=== PATIENT | male | born 1970 | race Caucasian/White ===

== ENCOUNTER 2018-07-13 20:14 | Inpatient (IN) | payer MEDICAID, OTHER ==
[2018-07-13 20:29] VITALS: BMI 25.8
[2018-07-13] MEDS ORDERED: Sodium Chloride 0.9% 1,000 ML IV ONE (20:35)
[2018-07-13 20:44] LABS: BASO % 0.5 % (0.0-2.0); EOS # 0.1 K/uL (0.0-0.7); EOS % 0.8 % (0.0-4.0); HEMOGLOBIN 16.7 g/dL (12.0-18.0); LYMPH # 2.4 K/uL (1.0-4.3); LYMPH % 33.6 % (20.0-40.0); MEAN CELL VOLUME 97.1 fL (80.0-94.0); MEAN CORPUSCULAR HEMOGLOBIN 33.4 pg (27.0-31.0); MEAN CORPUSCULAR HGB CONC 34.4 g/dL (33.0-37.0); MEAN PLATELET VOLUME 7.6 fL (7.2-11.7); MONO # 0.5 K/uL (0.0-0.8); NEUT # 4.1 K/uL (1.8-7.0); NEUT % 58.1 % (50.0-75.0); RED CELL DISTRIBUTION WIDTH 13.4 % (11.5-14.5); WHITE BLOOD COUNT 7.1 K/uL (4.8-10.8)
[2018-07-13 20:55] LABS: INR 1.1; PROTHROMBIN TIME 11.6 SECONDS (9.7-12.2)
[2018-07-13 20:57] LABS: ALB/GLOB RATIO 1.3 (1.0-2.1); ALBUMIN 5.6 g/dL (3.5-5.0); ALT/SGPT 388 U/L (21-72); AST/SGOT 406 U/L (17-59); BLOOD UREA NITROGEN 5 mg/dL (9-20); CALCIUM 9.9 mg/dl (8.6-10.4); GFR NON-AFRICAN AMERICAN > 60; HDL CHOLESTEROL 91 mg/dL (30-70)
[2018-07-13 21:08] LABS: LDL CHOLESTEROL 122 mg/dL (0-129)
--- NOTE | 2018-07-13 21:19 | C.PDOC ---
History Of Present Illness Patient BIBA for witnessed tonic clonic seizure that occurred [place] (seen by brother in law). Brother in law states he began shaking in the car, biting his tongue. He denies PMHx of seizure disorder, but admits that patient is a daily drinker of alcohol, and just returned from vacation in . He was there for approx 7 days and was drinking heavily the whole time, just returned yesterday from his trip. Time Seen by Provider: 07/13/18 20:19 Chief Complaint (Nursing): Altered Mental Status History Per: EMS, Family (brother in law) History/Exam Limitations: Clinical Condition Onset/Duration Of Symptoms: Other (H[place] CL[place]) Past Medical History Reviewed: Historical Data, Nursing Documentation, Vital Signs Vital Signs: Last Vital Signs Temp 98.7 F 07/13/18 20:25 Pulse 118 H 07/13/18 20:25 Resp 21 07/13/18 20:25 BP 193/99 H 07/13/18 20:25 Pulse Ox 97 07/13/18 20:25 - Medical History Other PMH: alcohol dependence Family History: States: No Known Family Hx - Social History Hx Alcohol Use: (UNKNOWN) Hx Substance Use: No (UNKNOWN) - Immunization History Hx Tetanus Toxoid Vaccination: No Hx Influenza Vaccination: No Hx Pneumococcal Vaccination: No Review Of Systems Review Of Systems: ROS cannot be obtained secondary to pt's inabilty to answer questions. Physical Exam - Physical Exam Appears: Other (confused, awake (?post ictal)) Skin: Normal Color, Warm, Dry Eye(s): bilateral: Other (occasional horizontal nystagmus ) Oral Mucosa: Moist Neck: Normal, Normal ROM, No Midline Cervical Tenderness, No Paracervical Tenderness, No Step Off Deformity, Supple Cardiovascular: Rhythm Regular (tachycardic ) Respiratory: Normal Breath Sounds, No Rales, No Rhonchi, No Wheezing Gastrointestinal/Abdominal: Normal Exam, Bowel Sounds, Soft, No Tenderness Extremity: Other (underwear wet with urine (+) loss of bladder control) Extremity: Bilateral: Atraumatic, Normal Color And Temperature, Normal ROM Neurological/Psych: Other (awake but confused, moving all 4 extremities spontaneously) ED Course And Treatment - Laboratory Results Result Diagrams: 07/13/18 20:28 07/13/18 20:34 O2 Sat by Pulse Oximetry: 97 (RA) Pulse Ox Interpretation: Normal - CT Scan/US CT Head Other Rad Studies (CT/US): Read By Radiologist, Radiology Report Reviewed CT/US Interpretation: FINDINGS: BRAIN. No acute intraparenchymal hemorrhage. No mass lesion. No CT evidence for acute territorial infarct. No midline shift or extra-axial collections. VENTRICLES: No hydrocephalus. ORBITS: The orbits are unremarkable. SINUSES AND MASTOIDS: The paranasal sinuses and mastoid air cells are clear. BONES: No fracture. SOFT TISSUES: Unremarkable. MISCELLANEOUS: No acute intracranial pathology. IMPRESSION: No acute intracranial pathology. Progress Note: Blood work, UA, UDS, EKG, CT head ordered and reviewed. Patient given IV NS bolus, IV ativan 1mg x 2. Suspect alcohol withdrawal seizure. 10:15PM- Patient agitated and speaking gibberish, not making sense. Discussed patient with [facility]. Skinner, concerned for delierium tremens. He will come eval patient. Disposition - Disposition Forms: [employer] (Slovak)
[2018-07-13 21:28] LABS: URINE BILIRUBIN NEGATIVE (NEGATIVE); URINE BLOOD 1+ (NEGATIVE); URINE CLARITY Clear (Clear); URINE COLOR Yellow (YELLOW); URINE GLUCOSE (UA) NORMAL (Normal); URINE LEUKOCYTE ESTERASE NEG Leu/uL (Negative); URINE PROTEIN NEGATIVE (NEGATIVE); URINE UROBILINOGEN NORMAL mg/dL (0.2-1.0)
[2018-07-13 21:36] LABS: BARBITURATES, UR NEGATIVE (NEGATIVE); BENZODIAZEPINES, UR NEGATIVE (NEGATIVE); OPIATES, UR NEGATIVE (NEGATIVE)
[2018-07-13 21:48] LABS: PHENCYCLIDINE, UR POSITIVE (NEGATIVE)
[2018-07-13] MEDS ORDERED: Multivitamin (MVI) 10 ML, Thiamine 100 MG, Folic Acid 1 MG in Sodium Chloride 0.9% 1,00... IV ONE (21:52)
--- NOTE | 2018-07-14 00:09 | CP.PCM.HP ---
<Tony Bolivar - Last Filed: 07/14/18 03:03> History of Present Illness - History of Present Illness History of Present Illness: H&P for Hospitalist Dr. Sommers History obtained from ER records as patient is incoherent with language and is under the influence of PCP and ETOH. 48 Y M brought in by ambulance for witnessed (by brother in law) tonic clonic seizures prior to arrival. Per brother in law, patient just returned from [facility] 1 days prior, where he was drinking heavily for 7 days. No further history obtainable since during H& P no family history was present. PMD: ? PMHx: ? Allergies: NKDA PSHx: ? Social: Heavy ETOH use FHx? Present on Admission - Present on Admission Any Indicators Present on Admission: No Review of Systems - Review of Systems Systems not reviewed;Unavailable: Altered Mental Status, Intoxicated Past Patient History - Past Social History Smoking Status: Unknown If Ever Smoked - PSYCHIATRIC Hx Substance Use: No (UNKNOWN) - SURGICAL HISTORY Hx Surgeries: (UNOBTAINABLE) - ANESTHESIA Hx Anesthesia: (UNOBTAINABLE) Meds Allergies/Adverse Reactions: Allergies Allergy/AdvReac Type Severity Reaction Status Date / Time No Known Allergies Allergy Verified 07/13/18 20:30 Physical Exam - Constitutional Appears: Agitated, Confused - Head Exam Head Exam: ATRAUMATIC, NORMAL INSPECTION, NORMOCEPHALIC - Eye Exam Eye Exam: Normal appearance - ENT Exam ENT Exam: Mucous Membranes Moist - Respiratory Exam Respiratory Exam: Clear to Auscultation Bilateral, NORMAL BREATHING PATTERN. absent: Rales, Rhonchi, Wheezes - Cardiovascular Exam Cardiovascular Exam: +S1, +S2. absent: Systolic Murmur - GI/Abdominal Exam GI & Abdominal Exam: Normal Bowel Sounds, Soft. absent: Distended - Extremities Exam Extremities exam: Positive for: normal inspection. Negative for: joint swelling, pedal edema - Neurological Exam Neurological exam: Alert, Altered - Skin Skin Exam: Dry, Intact, Normal Color, Warm Results - Vital Signs Recent Vital Signs: Last Vital Signs Temp 98.3 F 07/13/18 22:59 Pulse 119 H 07/13/18 22:59 Resp 17 07/13/18 22:59 BP 161/92 H 07/13/18 22:59 Pulse Ox 98 07/13/18 22:59 - Labs Result Diagrams: 07/13/18 20:28 07/13/18 20:34 Labs: Laboratory Results - last 24 hr 07/13/18 07/13/18 07/13/18 20:28 20:34 20:34 WBC 7.1 RBC 5.00 Hgb 16.7 Hct 48.6 MCV 97.1 H MCH 33.4 H MCHC 34.4 RDW 13.4 Plt Count 210 MPV 7.6 Neut % (Auto) 58.1 Lymph % (Auto) 33.6 [place] % (Auto) 7.0 Eos % (Auto) 0.8 Baso % (Auto) 0.5 Neut # (Auto) 4.1 Lymph # (Auto) 2.4 [place] # (Auto) 0.5 Eos # (Auto) 0.1 Baso # (Auto) 0.0 PT INR APTT Sodium 144 Potassium 4.7 Chloride 99 Carbon Dioxide 28 Anion Gap 22 H BUN 5 L Creatinine 0.6 L Est GFR ( Amer) > 60 Est GFR (Non-Af Amer) > 60 Random Glucose 110 Hemoglobin A1c 5.4 Calcium 9.9 Total Bilirubin 1.0 AST 406 H ALT 388 H D Alkaline Phosphatase 129 H Troponin I < 0.0120 Total Protein 9.8 H Albumin 5.6 H Globulin 4.3 H Albumin/Globulin Ratio 1.3 Triglycerides 302 H D Cholesterol 237 H LDL Cholesterol Direct 122 HDL Cholesterol 91 H Urine Color Urine Clarity Urine pH Ur Specific [place] Urine Protein Urine Glucose (UA) Urine Ketones Urine Blood Urine Nitrate Urine Bilirubin Urine Urobilinogen Ur Leukocyte Esterase Urine WBC (Auto) Urine RBC (Auto) Urine Opiates Screen Urine Methadone Screen Ur Barbiturates Screen Ur Phencyclidine Scrn Ur Amphetamines Screen U Benzodiazepines Scrn U Oth Cocaine Metabols U Cannabinoids Screen Alcohol, Quantitative 237 H Blood Type Antibody Screen 07/13/18 07/13/18 07/13/18 20:34 20:47 21:10 WBC RBC Hgb Hct MCV MCH MCHC RDW Plt Count MPV Neut % (Auto) Lymph % (Auto) [place] % (Auto) Eos % (Auto) Baso % (Auto) Neut # (Auto) Lymph # (Auto) [place] # (Auto) Eos # (Auto) Baso # (Auto) PT 11.6 INR 1.1 APTT 33 Sodium Potassium Chloride Carbon Dioxide Anion Gap BUN Creatinine Est GFR ( Amer) Est GFR (Non-Af Amer) Random Glucose Hemoglobin A1c Calcium Total Bilirubin AST ALT Alkaline Phosphatase Troponin I Total Protein Albumin Globulin Albumin/Globulin Ratio Triglycerides Cholesterol LDL Cholesterol Direct HDL Cholesterol Urine Color Yellow Urine Clarity Clear Urine pH 6.0 Ur Specific [place] 1.005 Urine Protein Negative Urine Glucose (UA) Normal Urine Ketones Negative Urine Blood 1+ H Urine Nitrate Negative Urine Bilirubin Negative Urine Urobilinogen Normal Ur Leukocyte Esterase Neg Urine WBC (Auto) < 1 Urine RBC (Auto) 1 Urine Opiates Screen Urine Methadone Screen Ur Barbiturates Screen Ur Phencyclidine Scrn Ur Amphetamines Screen U Benzodiazepines Scrn U Oth Cocaine Metabols U Cannabinoids Screen Alcohol, Quantitative Blood Type O POSITIVE Antibody Screen Negative 07/13/18 21:10 WBC RBC Hgb Hct MCV MCH MCHC RDW Plt Count MPV Neut % (Auto) Lymph % (Auto) [place] % (Auto) Eos % (Auto) Baso % (Auto) Neut # (Auto) Lymph # (Auto) [place] # (Auto) Eos # (Auto) Baso # (Auto) PT INR APTT Sodium Potassium Chloride Carbon Dioxide Anion Gap BUN Creatinine Est GFR ( Amer) Est GFR (Non-Af Amer) Random Glucose Hemoglobin A1c Calcium Total Bilirubin AST ALT Alkaline Phosphatase Troponin I Total Protein Albumin Globulin Albumin/Globulin Ratio Triglycerides Cholesterol LDL Cholesterol Direct HDL Cholesterol Urine Color Urine Clarity Urine pH Ur Specific [place] Urine Protein Urine Glucose (UA) Urine Ketones Urine Blood Urine Nitrate Urine Bilirubin Urine Urobilinogen Ur Leukocyte Esterase Urine WBC (Auto) Urine RBC (Auto) Urine Opiates Screen Negative Urine Methadone Screen Negative Ur Barbiturates Screen Negative Ur Phencyclidine Scrn Positive H Ur Amphetamines Screen Negative U Benzodiazepines Scrn Negative U Oth Cocaine Metabols Negative U Cannabinoids Screen Negative Alcohol, Quantitative Blood Type Antibody Screen Assessment & Plan - Assessment and Plan (Free Text) Assessment: 48 Y M brought in by ambulance for witnessed (by brother in law) tonic clonic seizures prior to arrival. Per brother in law, patient just returned from [facility] 1 days prior, where he was drinking heavily for 7 days. No further history obtainable since during H& P no family history was present. Agitation due to PCP - head CT: no acute intracranial pathology - sedate till sober - precedex 0.2 mcg/kg/ hr 1000ml Alcohol withdrawal - Watch for worsening of alcohol withdrawal - Aspiration precaution - Multivitamin - Thiamine 100 mg - Folic Acid 1mg - NS 125 mls/hr Seizure due to above combination - see above plan - hemoconcentration due to seizure - one to one Transaminitis - viral hepatitins panel - F/u ultrasound Prophylaxis - DVT: heparin 5000 units Q12H - Gradually reduce restrains as sedation increased <William Sommers - Last Filed: 07/14/18 06:23> Results - Vital Signs Recent Vital Signs: Last Vital Signs Temp 98 F 07/13/18 23:45 Pulse 114 H 07/13/18 23:45 Resp 17 07/13/18 23:45 BP 159/95 H 07/13/18 23:45 Pulse Ox 97 07/13/18 23:45 - Labs Result Diagrams: 07/14/18 05:56 07/13/18 20:34 Labs: Laboratory Results - last 24 hr 07/13/18 07/13/18 07/13/18 20:28 20:34 20:34 WBC 7.1 RBC 5.00 Hgb 16.7 Hct 48.6 MCV 97.1 H MCH 33.4 H MCHC 34.4 RDW 13.4 Plt Count 210 MPV 7.6 Neut % (Auto) 58.1 Lymph % (Auto) 33.6 [place] % (Auto) 7.0 Eos % (Auto) 0.8 Baso % (Auto) 0.5 Neut # (Auto) 4.1 Lymph # (Auto) 2.4 [place] # (Auto) 0.5 Eos # (Auto) 0.1 Baso # (Auto) 0.0 PT INR APTT Sodium 144 Potassium 4.7 Chloride 99 Carbon Dioxide 28 Anion Gap 22 H BUN 5 L Creatinine 0.6 L Est GFR ( Amer) > 60 Est GFR (Non-Af Amer) > 60 Random Glucose 110 Hemoglobin A1c 5.4 Calcium 9.9 Total Bilirubin 1.0 AST 406 H ALT 388 H D Alkaline Phosphatase 129 H Troponin I < 0.0120 Total Protein 9.8 H Albumin 5.6 H Globulin 4.3 H Albumin/Globulin Ratio 1.3 Triglycerides 302 H D Cholesterol 237 H LDL Cholesterol Direct 122 HDL Cholesterol 91 H Urine Color Urine Clarity Urine pH Ur Specific [place] Urine Protein Urine Glucose (UA) Urine Ketones Urine Blood Urine Nitrate Urine Bilirubin Urine Urobilinogen Ur Leukocyte Esterase Urine WBC (Auto) Urine RBC (Auto) Urine Opiates Screen Urine Methadone Screen Ur Barbiturates Screen Ur Phencyclidine Scrn Ur Amphetamines Screen U Benzodiazepines Scrn U Oth Cocaine Metabols U Cannabinoids Screen Alcohol, Quantitative 237 H Blood Type Antibody Screen 07/13/18 07/13/18 07/13/18 20:34 20:47 21:10 WBC RBC Hgb Hct MCV MCH MCHC RDW Plt Count MPV Neut % (Auto) Lymph % (Auto) [place] % (Auto) Eos % (Auto) Baso % (Auto) Neut # (Auto) Lymph # (Auto) [place] # (Auto) Eos # (Auto) Baso # (Auto) PT 11.6 INR 1.1 APTT 33 Sodium Potassium Chloride Carbon Dioxide Anion Gap BUN Creatinine Est GFR ( Amer) Est GFR (Non-Af Amer) Random Glucose Hemoglobin A1c Calcium Total Bilirubin AST ALT Alkaline Phosphatase Troponin I Total Protein Albumin Globulin Albumin/Globulin Ratio Triglycerides Cholesterol LDL Cholesterol Direct HDL Cholesterol Urine Color Yellow Urine Clarity Clear Urine pH 6.0 Ur Specific [place] 1.005 Urine Protein Negative Urine Glucose (UA) Normal Urine Ketones Negative Urine Blood 1+ H Urine Nitrate Negative Urine Bilirubin Negative Urine Urobilinogen Normal Ur Leukocyte Esterase Neg Urine WBC (Auto) < 1 Urine RBC (Auto) 1 Urine Opiates Screen Urine Methadone Screen Ur Barbiturates Screen Ur Phencyclidine Scrn Ur Amphetamines Screen U Benzodiazepines Scrn U Oth Cocaine Metabols U Cannabinoids Screen Alcohol, Quantitative Blood Type O POSITIVE Antibody Screen Negative 07/13/18 07/14/18 21:10 05:56 WBC 6.7 RBC 4.42 Hgb 14.9 Hct 42.9 MCV 96.9 H MCH 33.8 H MCHC 34.8 RDW 13.6 Plt Count 178 MPV 7.8 Neut % (Auto) 60.5 Lymph % (Auto) 29.4 [place] % (Auto) 9.0 Eos % (Auto) 0.7 Baso % (Auto) 0.4 Neut # (Auto) 4.0 Lymph # (Auto) 2.0 Josephine # (Auto) 0.6 Eos # (Auto) 0.0 Baso # (Auto) 0.0 PT INR APTT Sodium Potassium Chloride Carbon Dioxide Anion Gap BUN Creatinine Est GFR ( Amer) Est GFR (Non-Af Amer) Random Glucose Hemoglobin A1c Calcium Total Bilirubin AST ALT Alkaline Phosphatase Troponin I Total Protein Albumin Globulin Albumin/Globulin Ratio Triglycerides Cholesterol LDL Cholesterol Direct HDL Cholesterol Urine Color Urine Clarity Urine pH Ur Specific [place] Urine Protein Urine Glucose (UA) Urine Ketones Urine Blood Urine Nitrate Urine Bilirubin Urine Urobilinogen Ur Leukocyte Esterase Urine WBC (Auto) Urine RBC (Auto) Urine Opiates Screen Negative Urine Methadone Screen Negative Ur Barbiturates Screen Negative Ur Phencyclidine Scrn Positive H Ur Amphetamines Screen Negative U Benzodiazepines Scrn Negative U Oth Cocaine Metabols Negative U Cannabinoids Screen Negative Alcohol, Quantitative Blood Type Antibody Screen Assessment & Plan - Date & Time Date: 07/14/18 (I have seen and examined the patient. I agree with the findings and plan of care as documented by Dr. Bolivar. Patient with abuse of PCP and alcoh ol. Agitated. Seizurel. Transaminitis. Admit to ICU for further management. CIWA protocol with Ativan. Monitor for acute changes.) Time: 06:22 Attending/Attestation - Attestation I have personally seen and examined this patient.: Yes I have fully participated in the care of the patient.: Yes I have reviewed all pertinent clinical information: Yes
--- NOTE | 2018-07-14 00:30 | CP.PCM.CON ---
History of Present Illness - History of Present Illness History of Present Illness: 48 M with h/o alcoholism, drug abuse, was with his relative in the car and started to shake, EMT brought him here, initially he was lethargic and appeared post ictal but later he started to hallucinate, but still responding and answeri ng unreasonable answers, he was given 4 point restraints, he was not in distress. Labs showed hemoconcentration and transaminitis. PMD, PSH, meds, Allergies Details not available Social h/o heavy alcoholism Patient able to understand and communicate in E[place]. Review of Systems - Review of Systems All systems: reviewed and no additional remarkable complaints except (HPI) Past Patient History - Past Social History Smoking Status: Unknown If Ever Smoked Alcohol: > 2 Drinks/Day Drugs: Other (Unknown, but + PCP) Domestic Violence: Negative - PSYCHIATRIC Hx Substance Use: No (UNKNOWN) - SURGICAL HISTORY Hx Surgeries: (UNOBTAINABLE) - ANESTHESIA Hx Anesthesia: (UNOBTAINABLE) Meds Allergies/Adverse Reactions: Allergies Allergy/AdvReac Type Severity Reaction Status Date / Time No Known Allergies Allergy Verified 07/13/18 20:30 - Medications Medications: Current Medications Heparin Sodium (Porcine) (Heparin) 5,000 units SC Q12 [facility] Multivitamins/Vitamin C 10 ml/Thiamine HCl 100 mg/ Folic Acid 1 mg/ Sodium Chloride 1,011.2 mls @ 125 mls/hr IV .Q8H6M ONE Stop: 07/14/18 05:57 Last Admin: 07/13/18 22:20 Dose: 125 mls/hr Dexmedetomidine HCl 200 mcg/ (Sodium Chloride) 50 mls @ 3.97 mls/hr IV TITR PRN; Protocol PRN Reason: Agitation Pantoprazole Sodium (Protonix Inj) 40 mg IVP DAILY SARINA Physical Exam - Additional Findings Additional findings: * HEENT MICHELLE * Neck supple * Chest Clear * CVS Regular, tachycardia, RBBB on EKG * PA soft, nt bs present * Ext no edema, 4 point restraint * PEDIATRIC ONCOLOGIST awake, not in distress, hallucinating, moving all extremities, able to communicate Results - Vital Signs Recent Vital Signs: Last Vital Signs Temp 98.3 F 07/13/18 22:59 Pulse 119 H 07/13/18 22:59 Resp 17 07/13/18 22:59 BP 161/92 H 07/13/18 22:59 Pulse Ox 98 07/13/18 22:59 - Labs Result Diagrams: 07/13/18 20:28 07/13/18 20:34 Labs: Laboratory Results - last 24 hr 07/13/18 07/13/18 07/13/18 20:28 20:34 20:34 WBC 7.1 RBC 5.00 Hgb 16.7 Hct 48.6 MCV 97.1 H MCH 33.4 H MCHC 34.4 RDW 13.4 Plt Count 210 MPV 7.6 Neut % (Auto) 58.1 Lymph % (Auto) 33.6 [place] % (Auto) 7.0 Eos % (Auto) 0.8 Baso % (Auto) 0.5 Neut # (Auto) 4.1 Lymph # (Auto) 2.4 [place] # (Auto) 0.5 Eos # (Auto) 0.1 Baso # (Auto) 0.0 PT INR APTT Sodium 144 Potassium 4.7 Chloride 99 Carbon Dioxide 28 Anion Gap 22 H BUN 5 L Creatinine 0.6 L Est GFR ( Amer) > 60 Est GFR (Non-Af Amer) > 60 Random Glucose 110 Hemoglobin A1c 5.4 Calcium 9.9 Total Bilirubin 1.0 AST 406 H ALT 388 H D Alkaline Phosphatase 129 H Troponin I < 0.0120 Total Protein 9.8 H Albumin 5.6 H Globulin 4.3 H Albumin/Globulin Ratio 1.3 Triglycerides 302 H D Cholesterol 237 H LDL Cholesterol Direct 122 HDL Cholesterol 91 H Urine Color Urine Clarity Urine pH Ur Specific [place] Urine Protein Urine Glucose (UA) Urine Ketones Urine Blood Urine Nitrate Urine Bilirubin Urine Urobilinogen Ur Leukocyte Esterase Urine WBC (Auto) Urine RBC (Auto) Urine Opiates Screen Urine Methadone Screen Ur Barbiturates Screen Ur Phencyclidine Scrn Ur Amphetamines Screen U Benzodiazepines Scrn U Oth Cocaine Metabols U Cannabinoids Screen Alcohol, Quantitative 237 H Blood Type Antibody Screen 07/13/18 07/13/18 07/13/18 20:34 20:47 21:10 WBC RBC Hgb Hct MCV MCH MCHC RDW Plt Count MPV Neut % (Auto) Lymph % (Auto) [place] % (Auto) Eos % (Auto) Baso % (Auto) Neut # (Auto) Lymph # (Auto) [place] # (Auto) Eos # (Auto) Baso # (Auto) PT 11.6 INR 1.1 APTT 33 Sodium Potassium Chloride Carbon Dioxide Anion Gap BUN Creatinine Est GFR ( Amer) Est GFR (Non-Af Amer) Random Glucose Hemoglobin A1c Calcium Total Bilirubin AST ALT Alkaline Phosphatase Troponin I Total Protein Albumin Globulin Albumin/Globulin Ratio Triglycerides Cholesterol LDL Cholesterol Direct HDL Cholesterol Urine Color Yellow Urine Clarity Clear Urine pH 6.0 Ur Specific [place] 1.005 Urine Protein Negative Urine Glucose (UA) Normal Urine Ketones Negative Urine Blood 1+ H Urine Nitrate Negative Urine Bilirubin Negative Urine Urobilinogen Normal Ur Leukocyte Esterase Neg Urine WBC (Auto) < 1 Urine RBC (Auto) 1 Urine Opiates Screen Urine Methadone Screen Ur Barbiturates Screen Ur Phencyclidine Scrn Ur Amphetamines Screen U Benzodiazepines Scrn U Oth Cocaine Metabols U Cannabinoids Screen Alcohol, Quantitative Blood Type O POSITIVE Antibody Screen Negative 07/13/18 21:10 WBC RBC Hgb Hct MCV MCH MCHC RDW Plt Count MPV Neut % (Auto) Lymph % (Auto) [place] % (Auto) Eos % (Auto) Baso % (Auto) Neut # (Auto) Lymph # (Auto) [place] # (Auto) Eos # (Auto) Baso # (Auto) PT INR APTT Sodium Potassium Chloride Carbon Dioxide Anion Gap BUN Creatinine Est GFR ( Amer) Est GFR (Non-Af Amer) Random Glucose Hemoglobin A1c Calcium Total Bilirubin AST ALT Alkaline Phosphatase Troponin I Total Protein Albumin Globulin Albumin/Globulin Ratio Triglycerides Cholesterol LDL Cholesterol Direct HDL Cholesterol Urine Color Urine Clarity Urine pH Ur Specific [place] Urine Protein Urine Glucose (UA) Urine Ketones Urine Blood Urine Nitrate Urine Bilirubin Urine Urobilinogen Ur Leukocyte Esterase Urine WBC (Auto) Urine RBC (Auto) Urine Opiates Screen Negative Urine Methadone Screen Negative Ur Barbiturates Screen Negative Ur Phencyclidine Scrn Positive H Ur Amphetamines Screen Negative U Benzodiazepines Scrn Negative U Oth Cocaine Metabols Negative U Cannabinoids Screen Negative Alcohol, Quantitative Blood Type Antibody Screen Assessment & Plan - Assessment and Plan (Free Text) Assessment: * Agitation due to PCP * Alcohol withdrawal * Seizure due to above combination * hemoconcentration due to seizure * Transaminitis. Plan: * Sedate till sober * Watch for worsening of alcohol withdrawal * Aspiration precaution * GI/DVT prophylaxis * Bananna bag * Viral hepatitis panel * USG * Patient currently not in state that he could be counselled * Gradually reduce restrains as sedation increased. * See orders for detail.
[2018-07-14] MEDS: Dexmedetomidine Hydrochloride 200 MCG in Sodium Chloride 0.9% 48 ML IV PRN ×3 (01:00→09:39)
[2018-07-14 06:03] LABS: BASO % 0.4 % (0.0-2.0); EOS % 0.7 % (0.0-4.0); HEMOGLOBIN 14.9 g/dL (12.0-18.0); LYMPH % 29.4 % (20.0-40.0); MEAN CELL VOLUME 96.9 fL (80.0-94.0); MEAN CORPUSCULAR HEMOGLOBIN 33.8 pg (27.0-31.0); MEAN CORPUSCULAR HGB CONC 34.8 g/dL (33.0-37.0); MEAN PLATELET VOLUME 7.8 fL (7.2-11.7); MONO # 0.6 K/uL (0.0-0.8); NEUT % 60.5 % (50.0-75.0); NRBC % 0.1 % (0.0-2.0); RBC 4.42 Mil/uL (4.40-5.90); RED CELL DISTRIBUTION WIDTH 13.6 % (11.5-14.5); WHITE BLOOD COUNT 6.7 K/uL (4.8-10.8)
[2018-07-14 06:37] LABS: ALB/GLOB RATIO 1.5 (1.0-2.1); ALT/SGPT 348 U/L (21-72); AST/SGOT 343 U/L (17-59); BLOOD UREA NITROGEN 7 mg/dL (9-20); CALCIUM 9.3 mg/dl (8.6-10.4); GFR NON-AFRICAN AMERICAN > 60
[2018-07-14 06:53] LABS: HEPATITIS B SURFACE AG Negative (NEGATIVE)
[2018-07-14 06:59] LABS: HEPATITIS A IGM NEGATIVE (NEGATIVE); HEPATITIS B CORE AB NEGATIVE (NEGATIVE)
[2018-07-14 07:11] LABS: HEPATITIS C ANTIBODY NEGATIVE (NEGATIVE)
--- NOTE | 2018-07-14 08:16 | CT ---
Date of service: 07/13/2018 PROCEDURE: CT HEAD WITHOUT CONTRAST. HISTORY: Code Stroke COMPARISON: None available. TECHNIQUE: Axial computed tomography images were obtained through the head/brain without intravenous contrast. Radiation dose: Total exam DLP = 1029.09 mGy-cm. This CT exam was performed using one or more of the following dose reduction techniques: Automated exposure control, adjustment of the mA and/or kV according to patient size, and/or use of iterative reconstruction technique. FINDINGS: HEMORRHAGE: No intracranial hemorrhage. BRAIN: No mass effect or edema. No atrophy or chronic microvascular ischemic changes. VENTRICLES: Unremarkable. No hydrocephalus. CALVARIUM: Unremarkable. PARANASAL SINUSES: Unremarkable as visualized. No significant inflammatory changes. MASTOID AIR CELLS: Unremarkable as visualized. No inflammatory changes. OTHER FINDINGS: None. IMPRESSION: No acute intracranial abnormality. If symptoms persist, consider correlation with MRI. These findings were preliminarily reported at 9:23 p.m. on 07/13/[address] Eddie Ordoñez from [employer].
[2018-07-14 09:03] VITALS: TEMP 96.5
--- NOTE | 2018-07-14 09:16 | RAD ---
Date of service: 07/13/2018 HISTORY: Code Stroke COMPARISON: No prior. FINDINGS: LUNGS: The lungs are well inflated and clear. PLEURA: No pleural effusions or pneumothorax. CARDIOVASCULAR: The heart is normal in size. No aortic atherosclerotic calcification present. OSSEOUS STRUCTURES: Within normal limits for the patient's age. VISUALIZED UPPER ABDOMEN: Normal. OTHER FINDINGS: None. IMPRESSION: No active pulmonary disease.
--- NOTE | 2018-07-14 09:19 | CP.PCM.PN ---
Subjective - Date & Time of Evaluation Date of Evaluation: 07/14/18 Time of Evaluation: 08:15 - Subjective Subjective: Patient was on 1 to 1 when I saw him. He was calm, responding to questions. He did not appear agitated or having withdrawal symptoms - however he is on Precedex GGT at this moment. 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 He does not remember the events from previous night/morning. Currently no alcohol withdrawal symptoms - however this may change. Objective - Vital Signs/Intake and Output Vital Signs (last 24 hours): Temp Pulse Resp BP Pulse Ox 96.5 F L 60 14 134/89 99 07/14/18 08:00 07/14/18 09:00 07/14/18 09:00 07/14/18 08:59 07/14/18 09:00 Intake and Output: 07/14/18 07/14/18 06:59 18:59 Intake Total 887.3 131.8 Output Total 400 0 Balance 487.3 131.8 - Medications Medications: Current Medications Heparin Sodium (Porcine) (Heparin) 5,000 units SC Q12 [facility] Dexmedetomidine HCl 200 mcg/ (Sodium Chloride) 50 mls @ 3.97 mls/hr IV TITR PRN; Protocol PRN Reason: Agitation Last Titration: 07/14/18 05:00 Dose: 0.3 mcg/kg/hr, 5.95 mls/hr Pantoprazole Sodium (Protonix Inj) 40 mg IVP DAILY [facility] - Labs Labs: 07/14/18 05:56 07/14/18 05:56 PT 11.6 SECONDS (9.7-12.2) 07/13/18 20:47 INR 1.1 07/13/18 20:47 APTT 33 SECONDS (21-34) 07/13/18 20:47 - Constitutional Appears: No Acute Distress, Chronically Ill - Head Exam Head Exam: NORMAL INSPECTION - Eye Exam Eye Exam: EOMI, Normal appearance - Respiratory Exam Respiratory Exam: Clear to Ausculation Bilateral, NORMAL BREATHING PATTERN - Cardiovascular Exam Cardiovascular Exam: REGULAR RHYTHM - GI/Abdominal Exam GI & Abdominal Exam: Soft, Normal Bowel Sounds - Neurological Exam Neurological Exam: Alert, Altered, Awake - Psychiatric Exam Psychiatric exam: Depressed, Flat Affect - Skin Skin Exam: Normal Color, Warm Assessment and Plan - Assessment and Plan (Free Text) Assessment: 48 Y M brought in by ambulance for witnessed (by brother in law) tonic clonic seizures prior to arrival. Per brother in law, patient just returned from [facility] 1 days prior, where he was drinking heavily for 7 days. No further history obtainable since during H& P no family history was present. Agitation due to PCP 07/14: Currently better, last night/morning had severe agitation. - head CT: no acute intracranial pathology - sedate till sober - precedex 0.2 mcg/kg/ hr 1000ml Alcohol withdrawal 07/14: This morning currently no symptoms. however on Precedex GGT, Give ativan as needed as the prcedex is weened off. - Watch for worsening of alcohol withdrawal - Thiamine 100 mg - Folic Acid 1mg - NS 125 mls/hr Seizure due to above combination - see above plan - hemoconcentration due to seizure - one to one Transaminitis 07/14: Both AST and ALT decreased to mid 300s - viral hepatitins panel - F/u ultrasound Prophylaxis - DVT: heparin 5000 units Q12H - Gradually reduce restrains as sedation increased
--- NOTE | 2018-07-14 09:28 | CP.CCUPN ---
CCU Subjective - Physician Review Events Since Last Encounter (Free Text): 07/14/18 09:27 Patient was agitated overnight, however currently is calm and without complaints. Critical Care Time Spent (in minutes): 35 CCU Objective - Vital Signs / Intake & Output Vital Signs (Last 4 hours): Vital Signs Temp Pulse Resp BP Pulse Ox 07/14/18 09:00 60 14 99 07/14/18 08:59 17 134/89 07/14/18 08:20 79 20 99 07/14/18 08:10 62 20 99 07/14/18 08:00 96.5 F L 62 13 98 07/14/18 07:59 57 L 14 122/80 98 07/14/18 07:50 60 14 98 07/14/18 07:40 59 L 14 98 07/14/18 07:30 60 14 97 07/14/18 07:20 61 16 96 07/14/18 07:16 65 16 07/14/18 07:15 122/81 07/14/18 07:02 70 19 07/14/18 07:00 64 17 07/14/18 06:50 69 15 07/14/18 06:40 83 19 07/14/18 06:30 65 15 07/14/18 06:20 65 17 07/14/18 06:16 70 17 128/85 07/14/18 06:10 78 13 07/14/18 06:00 71 12 07/14/18 05:50 71 10 L 07/14/18 05:40 73 19 07/14/18 05:30 72 20 Intake and Output (Last 8hrs): Intake & Output 07/13/18 07/14/18 07/14/18 22:59 06:59 14:59 Intake Total 887.3 131.8 Output Total 400 0 Balance 487.3 131.8 Weight 175 lb 199 lb 15.348 oz Intake: IV 60 Intake, IV Amount 827.3 131.8 Left Antecubital 0 Right Antecubital 750 125 Right Upper arm 77.3 6.8 Oral 0 Output: Urine 400 Urine, Voided 400 Emesis 0 0 Other: # Voids Urine, Voided 1 # Bowel Movements 0 0 - Medications Active Medications: Active Medications Generic Name Dose Route Start Last Admin Trade Name Freq PRN Reason Stop Dose Admin Heparin Sodium (Porcine) 5,000 units 07/14/18 10:00 Heparin SC Q12 SARINA Dexmedetomidine HCl 200 mcg/ 50 mls @ 3.97 mls/hr 07/14/18 00:10 07/14/18 05: 00 Sodium Chloride IV 0.3 mcg/kg/hr TITR PRN 5.95 mls/hr Agitation Titration Protocol 0.2 MCG/KG/HR Pantoprazole Sodium 40 mg 07/14/18 10:00 Protonix Inj IVP DAILY SARINA - Patient Studies Lab Studies: Lab Studies 07/14/18 07/14/18 07/14/18 Range/Units 05:56 05:56 05:56 WBC 6.7 (4.8-10.8) K/uL RBC 4.42 (4.40-5.90) Mil/uL Hgb 14.9 (12.0-18.0) g/dL Hct 42.9 (35.0-51.0) % MCV 96.9 H (80.0-94.0) fL MCH 33.8 H (27.0-31.0) pg MCHC 34.8 (33.0-37.0) g/dL RDW 13.6 (11.5-14.5) % Plt Count 178 (130-400) K/uL MPV 7.8 (7.2-11.7) fL Neut % (Auto) 60.5 (50.0-75.0) % Lymph % (Auto) 29.4 (20.0-40.0) % [place] % (Auto) 9.0 (0.0-10.0) % Eos % (Auto) 0.7 (0.0-4.0) % Baso % (Auto) 0.4 (0.0-2.0) % Neut # (Auto) 4.0 (1.8-7.0) K/uL Lymph # (Auto) 2.0 (1.0-4.3) K/uL [place] # (Auto) 0.6 (0.0-0.8) K/uL Eos # (Auto) 0.0 (0.0-0.7) K/uL Baso # (Auto) 0.0 (0.0-0.2) K/uL PT (9.7-12.2) SECONDS INR APTT (21-34) SECONDS Sodium 145 (132-148) mmol/L Potassium 4.2 (3.6-5.2) mmol/L Chloride 107 (98-107) mmol/L Carbon Dioxide 23 (22-30) mmol/L Anion Gap 19 (10-20) BUN 7 L (9-20) mg/dL Creatinine 0.6 L (0.8-1.5) mg/dL Est GFR ( Amer) > 60 Est GFR (Non-Af Amer) > 60 Random Glucose 107 (75-110) mg/dL Hemoglobin A1c (4.2-6.5) % Calcium 9.3 (8.6-10.4) mg/dl Phosphorus 4.1 (2.5-4.5) mg/dL Magnesium 1.9 (1.6-2.3) mg/dL Total Bilirubin 1.1 (0.2-1.3) mg/dL AST 343 H (17-59) U/L ALT 348 H (21-72) U/L Alkaline Phosphatase 94 (38-126) U/L Troponin I (0.00-0.120) ng/mL Total Protein 8.4 H (6.3-8.3) g/dL Albumin 5.0 (3.5-5.0) g/dL Globulin 3.4 (2.2-3.9) gm/dL Albumin/Globulin Ratio 1.5 (1.0-2.1) Triglycerides (0-149) mg/dL Cholesterol (0-199) mg/dL LDL Cholesterol Direct (0-129) mg/dL HDL Cholesterol (30-70) mg/dL Urine Color (YELLOW) Urine Clarity (Clear) Urine pH (5.0-8.0) Ur Specific [place] (1.003-1.030) Urine Protein (NEGATIVE) mg/dL Urine Glucose (UA) (Normal) mg/dL Urine Ketones (NEGATIVE) mg/dL Urine Blood (NEGATIVE) Urine Nitrate (NEGATIVE) Urine Bilirubin (NEGATIVE) Urine Urobilinogen (0.2-1.0) mg/dL Ur Leukocyte Esterase (Negative) Jose Daniel/uL Urine WBC (Auto) (0-5) /hpf Urine RBC (Auto) (0-3) /hpf Urine Opiates Screen (NEGATIVE) Urine Methadone Screen (NEGATIVE) Ur Barbiturates Screen (NEGATIVE) Ur Phencyclidine Scrn (NEGATIVE) Ur Amphetamines Screen (NEGATIVE) U Benzodiazepines Scrn (NEGATIVE) U Oth Cocaine Metabols (NEGATIVE) U Cannabinoids Screen (NEGATIVE) Alcohol, Quantitative (0-10) mg/dl Hepatitis A IgM Ab Negative (NEGATIVE) Hep Bs Antigen Negative (NEGATIVE) Hep B Core IgM Ab Negative (NEGATIVE) Hepatitis C Antibody Negative (NEGATIVE) Blood Type Antibody Screen 07/14/18 07/13/18 07/13/18 Range/Units 05:56 21:10 21:10 WBC (4.8-10.8) K/uL RBC (4.40-5.90) Mil/uL Hgb (12.0-18.0) g/dL Hct (35.0-51.0) % MCV (80.0-94.0) fL MCH (27.0-31.0) pg MCHC (33.0-37.0) g/dL RDW (11.5-14.5) % Plt Count (130-400) K/uL MPV (7.2-11.7) fL Neut % (Auto) (50.0-75.0) % Lymph % (Auto) (20.0-40.0) % [place] % (Auto) (0.0-10.0) % Eos % (Auto) (0.0-4.0) % Baso % (Auto) (0.0-2.0) % Neut # (Auto) (1.8-7.0) K/uL Lymph # (Auto) (1.0-4.3) K/uL [place] # (Auto) (0.0-0.8) K/uL Eos # (Auto) (0.0-0.7) K/uL Baso # (Auto) (0.0-0.2) K/uL PT (9.7-12.2) SECONDS INR APTT (21-34) SECONDS Sodium (132-148) mmol/L Potassium (3.6-5.2) mmol/L Chloride (98-107) mmol/L Carbon Dioxide (22-30) mmol/L Anion Gap (10-20) BUN (9-20) mg/dL Creatinine (0.8-1.5) mg/dL Est GFR ( Amer) Est GFR (Non-Af Amer) Random Glucose (75-110) mg/dL Hemoglobin A1c (4.2-6.5) % Calcium (8.6-10.4) mg/dl Phosphorus (2.5-4.5) mg/dL Magnesium (1.6-2.3) mg/dL Total Bilirubin (0.2-1.3) mg/dL AST (17-59) U/L ALT (21-72) U/L Alkaline Phosphatase (38-126) U/L Troponin I (0.00-0.120) ng/mL Total Protein (6.3-8.3) g/dL Albumin (3.5-5.0) g/dL Globulin (2.2-3.9) gm/dL Albumin/Globulin Ratio (1.0-2.1) Triglycerides (0-149) mg/dL Cholesterol (0-199) mg/dL LDL Cholesterol Direct (0-129) mg/dL HDL Cholesterol (30-70) mg/dL Urine Color Yellow (YELLOW) Urine Clarity Clear (Clear) Urine pH 6.0 (5.0-8.0) Ur Specific [place] 1.005 (1.003-1.030) Urine Protein Negative (NEGATIVE) mg/dL Urine Glucose (UA) Normal (Normal) mg/dL Urine Ketones Negative (NEGATIVE) mg/dL Urine Blood 1+ H (NEGATIVE) Urine Nitrate Negative (NEGATIVE) Urine Bilirubin Negative (NEGATIVE) Urine Urobilinogen Normal (0.2-1.0) mg/dL Ur Leukocyte Esterase Neg (Negative) Jose Daniel/uL Urine WBC (Auto) < 1 (0-5) /hpf Urine RBC (Auto) 1 (0-3) /hpf Urine Opiates Screen Negative (NEGATIVE) Urine Methadone Screen Negative (NEGATIVE) Ur Barbiturates Screen Negative (NEGATIVE) Ur Phencyclidine Scrn Positive H (NEGATIVE) Ur Amphetamines Screen Negative (NEGATIVE) U Benzodiazepines Scrn Negative (NEGATIVE) U Oth Cocaine Metabols Negative (NEGATIVE) U Cannabinoids Screen Negative (NEGATIVE) Alcohol, Quantitative < 10 (0-10) mg/dl Hepatitis A IgM Ab (NEGATIVE) Hep Bs Antigen (NEGATIVE) Hep B Core IgM Ab (NEGATIVE) Hepatitis C Antibody (NEGATIVE) Blood Type Antibody Screen 07/13/18 07/13/18 07/13/18 Range/Units 20:47 20:34 20:34 WBC (4.8-10.8) K/uL RBC (4.40-5.90) Mil/uL Hgb (12.0-18.0) g/dL Hct (35.0-51.0) % MCV (80.0-94.0) fL MCH (27.0-31.0) pg MCHC (33.0-37.0) g/dL RDW (11.5-14.5) % Plt Count (130-400) K/uL MPV (7.2-11.7) fL Neut % (Auto) (50.0-75.0) % Lymph % (Auto) (20.0-40.0) % [place] % (Auto) (0.0-10.0) % Eos % (Auto) (0.0-4.0) % Baso % (Auto) (0.0-2.0) % Neut # (Auto) (1.8-7.0) K/uL Lymph # (Auto) (1.0-4.3) K/uL [place] # (Auto) (0.0-0.8) K/uL Eos # (Auto) (0.0-0.7) K/uL Baso # (Auto) (0.0-0.2) K/uL PT 11.6 (9.7-12.2) SECONDS INR 1.1 APTT 33 (21-34) SECONDS Sodium (132-148) mmol/L Potassium (3.6-5.2) mmol/L Chloride (98-107) mmol/L Carbon Dioxide (22-30) mmol/L Anion Gap (10-20) BUN (9-20) mg/dL Creatinine (0.8-1.5) mg/dL Est GFR ( Amer) Est GFR (Non-Af Amer) Random Glucose (75-110) mg/dL Hemoglobin A1c 5.4 (4.2-6.5) % Calcium (8.6-10.4) mg/dl Phosphorus (2.5-4.5) mg/dL Magnesium (1.6-2.3) mg/dL Total Bilirubin (0.2-1.3) mg/dL AST (17-59) U/L ALT (21-72) U/L Alkaline Phosphatase (38-126) U/L Troponin I (0.00-0.120) ng/mL Total Protein (6.3-8.3) g/dL Albumin (3.5-5.0) g/dL Globulin (2.2-3.9) gm/dL Albumin/Globulin Ratio (1.0-2.1) Triglycerides (0-149) mg/dL Cholesterol (0-199) mg/dL LDL Cholesterol Direct (0-129) mg/dL HDL Cholesterol (30-70) mg/dL Urine Color (YELLOW) Urine Clarity (Clear) Urine pH (5.0-8.0) Ur Specific [place] (1.003-1.030) Urine Protein (NEGATIVE) mg/dL Urine Glucose (UA) (Normal) mg/dL Urine Ketones (NEGATIVE) mg/dL Urine Blood (NEGATIVE) Urine Nitrate (NEGATIVE) Urine Bilirubin (NEGATIVE) Urine Urobilinogen (0.2-1.0) mg/dL Ur Leukocyte Esterase (Negative) Jose Daniel/uL Urine WBC (Auto) (0-5) /hpf Urine RBC (Auto) (0-3) /hpf Urine Opiates Screen (NEGATIVE) Urine Methadone Screen (NEGATIVE) Ur Barbiturates Screen (NEGATIVE) Ur Phencyclidine Scrn (NEGATIVE) Ur Amphetamines Screen (NEGATIVE) U Benzodiazepines Scrn (NEGATIVE) U Oth Cocaine Metabols (NEGATIVE) U Cannabinoids Screen (NEGATIVE) Alcohol, Quantitative (0-10) mg/dl Hepatitis A IgM Ab (NEGATIVE) Hep Bs Antigen (NEGATIVE) Hep B Core IgM Ab (NEGATIVE) Hepatitis C Antibody (NEGATIVE) Blood Type O POSITIVE Antibody Screen Negative 07/13/18 07/13/18 Range/Units 20:34 20:28 WBC 7.1 (4.8-10.8) K/uL RBC 5.00 (4.40-5.90) Mil/uL Hgb 16.7 (12.0-18.0) g/dL Hct 48.6 (35.0-51.0) % MCV 97.1 H (80.0-94.0) fL MCH 33.4 H (27.0-31.0) pg MCHC 34.4 (33.0-37.0) g/dL RDW 13.4 (11.5-14.5) % Plt Count 210 (130-400) K/uL MPV 7.6 (7.2-11.7) fL Neut % (Auto) 58.1 (50.0-75.0) % Lymph % (Auto) 33.6 (20.0-40.0) % [place] % (Auto) 7.0 (0.0-10.0) % Eos % (Auto) 0.8 (0.0-4.0) % Baso % (Auto) 0.5 (0.0-2.0) % Neut # (Auto) 4.1 (1.8-7.0) K/uL Lymph # (Auto) 2.4 (1.0-4.3) K/uL [place] # (Auto) 0.5 (0.0-0.8) K/uL Eos # (Auto) 0.1 (0.0-0.7) K/uL Baso # (Auto) 0.0 (0.0-0.2) K/uL PT (9.7-12.2) SECONDS INR APTT (21-34) SECONDS Sodium 144 (132-148) mmol/L Potassium 4.7 (3.6-5.2) mmol/L Chloride 99 (98-107) mmol/L Carbon Dioxide 28 (22-30) mmol/L Anion Gap 22 H (10-20) BUN 5 L (9-20) mg/dL Creatinine 0.6 L (0.8-1.5) mg/dL Est GFR ( Amer) > 60 Est GFR (Non-Af Amer) > 60 Random Glucose 110 (75-110) mg/dL Hemoglobin A1c (4.2-6.5) % Calcium 9.9 (8.6-10.4) mg/dl Phosphorus (2.5-4.5) mg/dL Magnesium (1.6-2.3) mg/dL Total Bilirubin 1.0 (0.2-1.3) mg/dL AST 406 H (17-59) U/L ALT 388 H D (21-72) U/L Alkaline Phosphatase 129 H (38-126) U/L Troponin I < 0.0120 (0.00-0.120) ng/mL Total Protein 9.8 H (6.3-8.3) g/dL Albumin 5.6 H (3.5-5.0) g/dL Globulin 4.3 H (2.2-3.9) gm/dL Albumin/Globulin Ratio 1.3 (1.0-2.1) Triglycerides 302 H D (0-149) mg/dL Cholesterol 237 H (0-199) mg/dL LDL Cholesterol Direct 122 (0-129) mg/dL HDL Cholesterol 91 H (30-70) mg/dL Urine Color (YELLOW) Urine Clarity (Clear) Urine pH (5.0-8.0) Ur Specific [place] (1.003-1.030) Urine Protein (NEGATIVE) mg/dL Urine Glucose (UA) (Normal) mg/dL Urine Ketones (NEGATIVE) mg/dL Urine Blood (NEGATIVE) Urine Nitrate (NEGATIVE) Urine Bilirubin (NEGATIVE) Urine Urobilinogen (0.2-1.0) mg/dL Ur Leukocyte Esterase (Negative) Jose Daniel/uL Urine WBC (Auto) (0-5) /hpf Urine RBC (Auto) (0-3) /hpf Urine Opiates Screen (NEGATIVE) Urine Methadone Screen (NEGATIVE) Ur Barbiturates Screen (NEGATIVE) Ur Phencyclidine Scrn (NEGATIVE) Ur Amphetamines Screen (NEGATIVE) U Benzodiazepines Scrn (NEGATIVE) U Oth Cocaine Metabols (NEGATIVE) U Cannabinoids Screen (NEGATIVE) Alcohol, Quantitative 237 H (0-10) mg/dl Hepatitis A IgM Ab (NEGATIVE) Hep Bs Antigen (NEGATIVE) Hep B Core IgM Ab (NEGATIVE) Hepatitis C Antibody (NEGATIVE) Blood Type Antibody Screen Laboratory Results - last 24 hr 07/13/18 07/13/18 07/13/18 20:28 20:34 20:34 WBC 7.1 RBC 5.00 Hgb 16.7 Hct 48.6 MCV 97.1 H MCH 33.4 H MCHC 34.4 RDW 13.4 Plt Count 210 MPV 7.6 Neut % (Auto) 58.1 Lymph % (Auto) 33.6 [place] % (Auto) 7.0 Eos % (Auto) 0.8 Baso % (Auto) 0.5 Neut # (Auto) 4.1 Lymph # (Auto) 2.4 [place] # (Auto) 0.5 Eos # (Auto) 0.1 Baso # (Auto) 0.0 PT INR APTT Sodium 144 Potassium 4.7 Chloride 99 Carbon Dioxide 28 Anion Gap 22 H BUN 5 L Creatinine 0.6 L Est GFR ( Amer) > 60 Est GFR (Non-Af Amer) > 60 Random Glucose 110 Hemoglobin A1c 5.4 Calcium 9.9 Phosphorus Magnesium Total Bilirubin 1.0 AST 406 H ALT 388 H D Alkaline Phosphatase 129 H Troponin I < 0.0120 Total Protein 9.8 H Albumin 5.6 H Globulin 4.3 H Albumin/Globulin Ratio 1.3 Triglycerides 302 H D Cholesterol 237 H LDL Cholesterol Direct 122 HDL Cholesterol 91 H Urine Color Urine Clarity Urine pH Ur Specific [place] Urine Protein Urine Glucose (UA) Urine Ketones Urine Blood Urine Nitrate Urine Bilirubin Urine Urobilinogen Ur Leukocyte Esterase Urine WBC (Auto) Urine RBC (Auto) Urine Opiates Screen Urine Methadone Screen Ur Barbiturates Screen Ur Phencyclidine Scrn Ur Amphetamines Screen U Benzodiazepines Scrn U Oth Cocaine Metabols U Cannabinoids Screen Alcohol, Quantitative 237 H Hepatitis A IgM Ab Hep Bs Antigen Hep B Core IgM Ab Hepatitis C Antibody Blood Type Antibody Screen 07/13/18 07/13/18 07/13/18 20:34 20:47 21:10 WBC RBC Hgb Hct MCV MCH MCHC RDW Plt Count MPV Neut % (Auto) Lymph % (Auto) [place] % (Auto) Eos % (Auto) Baso % (Auto) Neut # (Auto) Lymph # (Auto) [place] # (Auto) Eos # (Auto) Baso # (Auto) PT 11.6 INR 1.1 APTT 33 Sodium Potassium Chloride Carbon Dioxide Anion Gap BUN Creatinine Est GFR ( Amer) Est GFR (Non-Af Amer) Random Glucose Hemoglobin A1c Calcium Phosphorus Magnesium Total Bilirubin AST ALT Alkaline Phosphatase Troponin I Total Protein Albumin Globulin Albumin/Globulin Ratio Triglycerides Cholesterol LDL Cholesterol Direct HDL Cholesterol Urine Color Yellow Urine Clarity Clear Urine pH 6.0 Ur Specific [place] 1.005 Urine Protein Negative Urine Glucose (UA) Normal Urine Ketones Negative Urine Blood 1+ H Urine Nitrate Negative Urine Bilirubin Negative Urine Urobilinogen Normal Ur Leukocyte Esterase Neg Urine WBC (Auto) < 1 Urine RBC (Auto) 1 Urine Opiates Screen Urine Methadone Screen Ur Barbiturates Screen Ur Phencyclidine Scrn Ur Amphetamines Screen U Benzodiazepines Scrn U Oth Cocaine Metabols U Cannabinoids Screen Alcohol, Quantitative Hepatitis A IgM Ab Hep Bs Antigen Hep B Core IgM Ab Hepatitis C Antibody Blood Type O POSITIVE Antibody Screen Negative 07/13/18 07/14/18 07/14/18 21:10 05:56 05:56 WBC RBC Hgb Hct MCV MCH MCHC RDW Plt Count MPV Neut % (Auto) Lymph % (Auto) [place] % (Auto) Eos % (Auto) Baso % (Auto) Neut # (Auto) Lymph # (Auto) [place] # (Auto) Eos # (Auto) Baso # (Auto) PT INR APTT Sodium Potassium Chloride Carbon Dioxide Anion Gap BUN Creatinine Est GFR ( Amer) Est GFR (Non-Af Amer) Random Glucose Hemoglobin A1c Calcium Phosphorus Magnesium Total Bilirubin AST ALT Alkaline Phosphatase Troponin I Total Protein Albumin Globulin Albumin/Globulin Ratio Triglycerides Cholesterol LDL Cholesterol Direct HDL Cholesterol Urine Color Urine Clarity Urine pH Ur Specific [place] Urine Protein Urine Glucose (UA) Urine Ketones Urine Blood Urine Nitrate Urine Bilirubin Urine Urobilinogen Ur Leukocyte Esterase Urine WBC (Auto) Urine RBC (Auto) Urine Opiates Screen Negative Urine Methadone Screen Negative Ur Barbiturates Screen Negative Ur Phencyclidine Scrn Positive H Ur Amphetamines Screen Negative U Benzodiazepines Scrn Negative U Oth Cocaine Metabols Negative U Cannabinoids Screen Negative Alcohol, Quantitative < 10 Hepatitis A IgM Ab Negative Hep Bs Antigen Negative Hep B Core IgM Ab Negative Hepatitis C Antibody Negative Blood Type Antibody Screen 07/14/18 07/14/18 05:56 05:56 WBC 6.7 RBC 4.42 Hgb 14.9 Hct 42.9 MCV 96.9 H MCH 33.8 H MCHC 34.8 RDW 13.6 Plt Count 178 MPV 7.8 Neut % (Auto) 60.5 Lymph % (Auto) 29.4 [place] % (Auto) 9.0 Eos % (Auto) 0.7 Baso % (Auto) 0.4 Neut # (Auto) 4.0 Lymph # (Auto) 2.0 [place] # (Auto) 0.6 Eos # (Auto) 0.0 Baso # (Auto) 0.0 PT INR APTT Sodium 145 Potassium 4.2 Chloride 107 Carbon Dioxide 23 Anion Gap 19 BUN 7 L Creatinine 0.6 L Est GFR ( Amer) > 60 Est GFR (Non-Af Amer) > 60 Random Glucose 107 Hemoglobin A1c Calcium 9.3 Phosphorus 4.1 Magnesium 1.9 Total Bilirubin 1.1 AST 343 H ALT 348 H Alkaline Phosphatase 94 Troponin I Total Protein 8.4 H Albumin 5.0 Globulin 3.4 Albumin/Globulin Ratio 1.5 Triglycerides Cholesterol LDL Cholesterol Direct HDL Cholesterol Urine Color Urine Clarity Urine pH Ur Specific [place] Urine Protein Urine Glucose (UA) Urine Ketones Urine Blood Urine Nitrate Urine Bilirubin Urine Urobilinogen Ur Leukocyte Esterase Urine WBC (Auto) Urine RBC (Auto) Urine Opiates Screen Urine Methadone Screen Ur Barbiturates Screen Ur Phencyclidine Scrn Ur Amphetamines Screen U Benzodiazepines Scrn U Oth Cocaine Metabols U Cannabinoids Screen Alcohol, Quantitative Hepatitis A IgM Ab Hep Bs Antigen Hep B Core IgM Ab Hepatitis C Antibody Blood Type Antibody Screen EKG/Cardiology Studies: Cardiology / EKG Studies 07/13/18 20:28 ELECTROCARDIOGRAM Stat Comment: Mode Of Transportation: BED Reason For Exam: code stroke 07/13/18 23:04 EKG [ELECTROCARDIOGRAM] Stat Comment: Mode Of Transportation: BED Reason For Exam: cp Critical Care Progress Note - Nutrition Nutrition: Nutrition Category Date Time Status Regular Diet [DIET] Diets 07/14/18 Breakfast Active
--- NOTE | 2018-07-14 09:29 | US ---
Date of service: 07/14/2018 HISTORY: transaminitis. COMPARISON: Abdomen ultrasound 07/24/2013. TECHNIQUE: Sonographic evaluation of the right upper quadrant of the abdomen. FINDINGS: LIVER: Measures 16.8 cm in length. Diffusely increased echogenicity of the liver parenchyma. No mass. No intrahepatic bile duct dilatation. Normal directional blood flows appreciated at the portal and hepatic veins. GALLBLADDER: Cholelithiasis identified with the gallbladder otherwise unremarkable. No sonographic Medina sign reported. COMMON BILE DUCT: Measures 3.0 mm. No stones. No dilatation. PANCREAS: The tail of the pancreas is obscured by overlying bowel gas with remainder unremarkable. RIGHT KIDNEY: Measures 11.8 cm in length. Normal echogenicity. No calculus, mass, or hydronephrosis. AORTA: No aneurysmal dilatation. IVC: Unremarkable. OTHER FINDINGS: None . IMPRESSION: 1. Interval cholelithiasis. Normal CBD caliber. 2. Reiterated hepatic steatosis or other infiltrative hepatic process without mass or cyst throughout the parenchyma. No definitive intrahepatic biliary dilatation. 3. Partial imaging of the pancreas.
[2018-07-14] MEDS ORDERED: Multiple Vitamins Tab PO SCH (10:00)
[2018-07-14 12:16] VITALS: BP 132/90; PULSE 76; RESP 13; O2SAT 99
--- NOTE | 2018-07-14 12:45 | CARD ---
APPROVED REPORT Date of service: 07/13/2018 EKG Measurement Heart [id number] <Conclusion> Sinus tachycardia Right bundle branch block Left anterior fascicular block Bifascicular block Abnormal ECG
--- NOTE | 2018-07-14 18:43 | CP.CCUPN ---
CCU Subjective - Physician Review Events Since Last Encounter (Free Text): 07/14/18 18:38 No acute events overnight Subjective (Free Text): 07/14/18 18:38 Patient was seen at bedside and requested to leave AGAINST MEDICAL ADVICE. Patient reports he needs to leave due to work and financial issues. Patient otherwise denies chest pain, tremors, nausea, vomiting, diaphoresis, shortness of breath, palpitations, and/or lightheadedness. Critical Care Time Spent (in minutes): 35 CCU Objective - Vital Signs / Intake & Output Intake and Output (Last 8hrs): Intake & Output 07/14/18 07/14/18 07/14/18 06:59 14:59 22:59 Intake Total 887.3 805.1 Output Total 400 400 Balance 487.3 405.1 Weight 199 lb 15.348 oz Intake: IV 60 47 Intake, IV Amount 827.3 278.1 Left Antecubital 0 Right Antecubital 750 250 Right Upper arm 77.3 28.1 Oral 0 480 Output: Urine 400 400 Urine, Voided 400 400 Emesis 0 0 Other: # Voids Urine, Voided 1 1 # Bowel Movements 0 0 - Physical Exam Physical Exam Limitations: Positive for: Uncooperative (patient signed out AGAINST MEDICAL ADVICE ) - Patient Studies Lab Studies: Microbiology Studies 07/14/18 06:00 MRSA Culture (Admit) - Final Naris MRSA NOT DETECTED Lab Studies 07/14/18 07/14/18 07/14/18 Range/Units 05:56 05:56 05:56 WBC 6.7 (4.8-10.8) K/uL RBC 4.42 (4.40-5.90) Mil/uL Hgb 14.9 (12.0-18.0) g/dL Hct 42.9 (35.0-51.0) % MCV 96.9 H (80.0-94.0) fL MCH 33.8 H (27.0-31.0) pg MCHC 34.8 (33.0-37.0) g/dL RDW 13.6 (11.5-14.5) % Plt Count 178 (130-400) K/uL MPV 7.8 (7.2-11.7) fL Neut % (Auto) 60.5 (50.0-75.0) % Lymph % (Auto) 29.4 (20.0-40.0) % [place] % (Auto) 9.0 (0.0-10.0) % Eos % (Auto) 0.7 (0.0-4.0) % Baso % (Auto) 0.4 (0.0-2.0) % Neut # (Auto) 4.0 (1.8-7.0) K/uL Lymph # (Auto) 2.0 (1.0-4.3) K/uL [place] # (Auto) 0.6 (0.0-0.8) K/uL Eos # (Auto) 0.0 (0.0-0.7) K/uL Baso # (Auto) 0.0 (0.0-0.2) K/uL PT (9.7-12.2) SECONDS INR APTT (21-34) SECONDS Sodium 145 (132-148) mmol/L Potassium 4.2 (3.6-5.2) mmol/L Chloride 107 (98-107) mmol/L Carbon Dioxide 23 (22-30) mmol/L Anion Gap 19 (10-20) BUN 7 L (9-20) mg/dL Creatinine 0.6 L (0.8-1.5) mg/dL Est GFR ( Amer) > 60 Est GFR (Non-Af Amer) > 60 POC Glucose (mg/dL) (65-110) mg/dL Random Glucose 107 (75-110) mg/dL Hemoglobin A1c (4.2-6.5) % Calcium 9.3 (8.6-10.4) mg/dl Phosphorus 4.1 (2.5-4.5) mg/dL Magnesium 1.9 (1.6-2.3) mg/dL Total Bilirubin 1.1 (0.2-1.3) mg/dL AST 343 H (17-59) U/L ALT 348 H (21-72) U/L Alkaline Phosphatase 94 (38-126) U/L Troponin I (0.00-0.120) ng/mL Total Protein 8.4 H (6.3-8.3) g/dL Albumin 5.0 (3.5-5.0) g/dL Globulin 3.4 (2.2-3.9) gm/dL Albumin/Globulin Ratio 1.5 (1.0-2.1) Triglycerides (0-149) mg/dL Cholesterol (0-199) mg/dL LDL Cholesterol Direct (0-129) mg/dL HDL Cholesterol (30-70) mg/dL Urine Color (YELLOW) Urine Clarity (Clear) Urine pH (5.0-8.0) Ur Specific [place] (1.003-1.030) Urine Protein (NEGATIVE) mg/dL Urine Glucose (UA) (Normal) mg/dL Urine Ketones (NEGATIVE) mg/dL Urine Blood (NEGATIVE) Urine Nitrate (NEGATIVE) Urine Bilirubin (NEGATIVE) Urine Urobilinogen (0.2-1.0) mg/dL Ur Leukocyte Esterase (Negative) Jose Daniel/uL Urine WBC (Auto) (0-5) /hpf Urine RBC (Auto) (0-3) /hpf Urine Opiates Screen (NEGATIVE) Urine Methadone Screen (NEGATIVE) Ur Barbiturates Screen (NEGATIVE) Ur Phencyclidine Scrn (NEGATIVE) Ur Amphetamines Screen (NEGATIVE) U Benzodiazepines Scrn (NEGATIVE) U Oth Cocaine Metabols (NEGATIVE) U Cannabinoids Screen (NEGATIVE) Alcohol, Quantitative (0-10) mg/dl Hepatitis A IgM Ab Negative (NEGATIVE) Hep Bs Antigen Negative (NEGATIVE) Hep B Core IgM Ab Negative (NEGATIVE) Hepatitis C Antibody Negative (NEGATIVE) Blood Type Antibody Screen 07/14/18 07/13/18 07/13/18 Range/Units 05:56 21:10 21:10 WBC (4.8-10.8) K/uL RBC (4.40-5.90) Mil/uL Hgb (12.0-18.0) g/dL Hct (35.0-51.0) % MCV (80.0-94.0) fL MCH (27.0-31.0) pg MCHC (33.0-37.0) g/dL RDW (11.5-14.5) % Plt Count (130-400) K/uL MPV (7.2-11.7) fL Neut % (Auto) (50.0-75.0) % Lymph % (Auto) (20.0-40.0) % [place] % (Auto) (0.0-10.0) % Eos % (Auto) (0.0-4.0) % Baso % (Auto) (0.0-2.0) % Neut # (Auto) (1.8-7.0) K/uL Lymph # (Auto) (1.0-4.3) K/uL [place] # (Auto) (0.0-0.8) K/uL Eos # (Auto) (0.0-0.7) K/uL Baso # (Auto) (0.0-0.2) K/uL PT (9.7-12.2) SECONDS INR APTT (21-34) SECONDS Sodium (132-148) mmol/L Potassium (3.6-5.2) mmol/L Chloride (98-107) mmol/L Carbon Dioxide (22-30) mmol/L Anion Gap (10-20) BUN (9-20) mg/dL Creatinine (0.8-1.5) mg/dL Est GFR ( Amer) Est GFR (Non-Af Amer) POC Glucose (mg/dL) (65-110) mg/dL Random Glucose (75-110) mg/dL Hemoglobin A1c (4.2-6.5) % Calcium (8.6-10.4) mg/dl Phosphorus (2.5-4.5) mg/dL Magnesium (1.6-2.3) mg/dL Total Bilirubin (0.2-1.3) mg/dL AST (17-59) U/L ALT (21-72) U/L Alkaline Phosphatase (38-126) U/L Troponin I (0.00-0.120) ng/mL Total Protein (6.3-8.3) g/dL Albumin (3.5-5.0) g/dL Globulin (2.2-3.9) gm/dL Albumin/Globulin Ratio (1.0-2.1) Triglycerides (0-149) mg/dL Cholesterol (0-199) mg/dL LDL Cholesterol Direct (0-129) mg/dL HDL Cholesterol (30-70) mg/dL Urine Color Yellow (YELLOW) Urine Clarity Clear (Clear) Urine pH 6.0 (5.0-8.0) Ur Specific [place] 1.005 (1.003-1.030) Urine Protein Negative (NEGATIVE) mg/dL Urine Glucose (UA) Normal (Normal) mg/dL Urine Ketones Negative (NEGATIVE) mg/dL Urine Blood 1+ H (NEGATIVE) Urine Nitrate Negative (NEGATIVE) Urine Bilirubin Negative (NEGATIVE) Urine Urobilinogen Normal (0.2-1.0) mg/dL Ur Leukocyte Esterase Neg (Negative) Jose Daniel/uL Urine WBC (Auto) < 1 (0-5) /hpf Urine RBC (Auto) 1 (0-3) /hpf Urine Opiates Screen Negative (NEGATIVE) Urine Methadone Screen Negative (NEGATIVE) Ur Barbiturates Screen Negative (NEGATIVE) Ur Phencyclidine Scrn Positive H (NEGATIVE) Ur Amphetamines Screen Negative (NEGATIVE) U Benzodiazepines Scrn Negative (NEGATIVE) U Oth Cocaine Metabols Negative (NEGATIVE) U Cannabinoids Screen Negative (NEGATIVE) Alcohol, Quantitative < 10 (0-10) mg/dl Hepatitis A IgM Ab (NEGATIVE) Hep Bs Antigen (NEGATIVE) Hep B Core IgM Ab (NEGATIVE) Hepatitis C Antibody (NEGATIVE) Blood Type Antibody Screen 07/13/18 07/13/18 07/13/18 Range/Units 20:47 20:34 20:34 WBC (4.8-10.8) K/uL RBC (4.40-5.90) Mil/uL Hgb (12.0-18.0) g/dL Hct (35.0-51.0) % MCV (80.0-94.0) fL MCH (27.0-31.0) pg MCHC (33.0-37.0) g/dL RDW (11.5-14.5) % Plt Count (130-400) K/uL MPV (7.2-11.7) fL Neut % (Auto) (50.0-75.0) % Lymph % (Auto) (20.0-40.0) % [place] % (Auto) (0.0-10.0) % Eos % (Auto) (0.0-4.0) % Baso % (Auto) (0.0-2.0) % Neut # (Auto) (1.8-7.0) K/uL Lymph # (Auto) (1.0-4.3) K/uL [place] # (Auto) (0.0-0.8) K/uL Eos # (Auto) (0.0-0.7) K/uL Baso # (Auto) (0.0-0.2) K/uL PT 11.6 (9.7-12.2) SECONDS INR 1.1 APTT 33 (21-34) SECONDS Sodium (132-148) mmol/L Potassium (3.6-5.2) mmol/L Chloride (98-107) mmol/L Carbon Dioxide (22-30) mmol/L Anion Gap (10-20) BUN (9-20) mg/dL Creatinine (0.8-1.5) mg/dL Est GFR ( Amer) Est GFR (Non-Af Amer) POC Glucose (mg/dL) (65-110) mg/dL Random Glucose (75-110) mg/dL Hemoglobin A1c 5.4 (4.2-6.5) % Calcium (8.6-10.4) mg/dl Phosphorus (2.5-4.5) mg/dL Magnesium (1.6-2.3) mg/dL Total Bilirubin (0.2-1.3) mg/dL AST (17-59) U/L ALT (21-72) U/L Alkaline Phosphatase (38-126) U/L Troponin I (0.00-0.120) ng/mL Total Protein (6.3-8.3) g/dL Albumin (3.5-5.0) g/dL Globulin (2.2-3.9) gm/dL Albumin/Globulin Ratio (1.0-2.1) Triglycerides (0-149) mg/dL Cholesterol (0-199) mg/dL LDL Cholesterol Direct (0-129) mg/dL HDL Cholesterol (30-70) mg/dL Urine Color (YELLOW) Urine Clarity (Clear) Urine pH (5.0-8.0) Ur Specific [place] (1.003-1.030) Urine Protein (NEGATIVE) mg/dL Urine Glucose (UA) (Normal) mg/dL Urine Ketones (NEGATIVE) mg/dL Urine Blood (NEGATIVE) Urine Nitrate (NEGATIVE) Urine Bilirubin (NEGATIVE) Urine Urobilinogen (0.2-1.0) mg/dL Ur Leukocyte Esterase (Negative) Jose Daniel/uL Urine WBC (Auto) (0-5) /hpf Urine RBC (Auto) (0-3) /hpf Urine Opiates Screen (NEGATIVE) Urine Methadone Screen (NEGATIVE) Ur Barbiturates Screen (NEGATIVE) Ur Phencyclidine Scrn (NEGATIVE) Ur Amphetamines Screen (NEGATIVE) U Benzodiazepines Scrn (NEGATIVE) U Oth Cocaine Metabols (NEGATIVE) U Cannabinoids Screen (NEGATIVE) Alcohol, Quantitative (0-10) mg/dl Hepatitis A IgM Ab (NEGATIVE) Hep Bs Antigen (NEGATIVE) Hep B Core IgM Ab (NEGATIVE) Hepatitis C Antibody (NEGATIVE) Blood Type O POSITIVE Antibody Screen Negative 07/13/18 07/13/18 07/13/18 Range/Units 20:34 20:28 20:22 WBC 7.1 (4.8-10.8) K/uL RBC 5.00 (4.40-5.90) Mil/uL Hgb 16.7 (12.0-18.0) g/dL Hct 48.6 (35.0-51.0) % MCV 97.1 H (80.0-94.0) fL MCH 33.4 H (27.0-31.0) pg MCHC 34.4 (33.0-37.0) g/dL RDW 13.4 (11.5-14.5) % Plt Count 210 (130-400) K/uL MPV 7.6 (7.2-11.7) fL Neut % (Auto) 58.1 (50.0-75.0) % Lymph % (Auto) 33.6 (20.0-40.0) % [place] % (Auto) 7.0 (0.0-10.0) % Eos % (Auto) 0.8 (0.0-4.0) % Baso % (Auto) 0.5 (0.0-2.0) % Neut # (Auto) 4.1 (1.8-7.0) K/uL Lymph # (Auto) 2.4 (1.0-4.3) K/uL [place] # (Auto) 0.5 (0.0-0.8) K/uL Eos # (Auto) 0.1 (0.0-0.7) K/uL Baso # (Auto) 0.0 (0.0-0.2) K/uL PT (9.7-12.2) SECONDS INR APTT (21-34) SECONDS Sodium 144 (132-148) mmol/L Potassium 4.7 (3.6-5.2) mmol/L Chloride 99 (98-107) mmol/L Carbon Dioxide 28 (22-30) mmol/L Anion Gap 22 H (10-20) BUN 5 L (9-20) mg/dL Creatinine 0.6 L (0.8-1.5) mg/dL Est GFR ( Amer) > 60 Est GFR (Non-Af Amer) > 60 POC Glucose (mg/dL) 108 (65-110) mg/dL Random Glucose 110 (75-110) mg/dL Hemoglobin A1c (4.2-6.5) % Calcium 9.9 (8.6-10.4) mg/dl Phosphorus (2.5-4.5) mg/dL Magnesium (1.6-2.3) mg/dL Total Bilirubin 1.0 (0.2-1.3) mg/dL AST 406 H (17-59) U/L ALT 388 H D (21-72) U/L Alkaline Phosphatase 129 H (38-126) U/L Troponin I < 0.0120 (0.00-0.120) ng/mL Total Protein 9.8 H (6.3-8.3) g/dL Albumin 5.6 H (3.5-5.0) g/dL Globulin 4.3 H (2.2-3.9) gm/dL Albumin/Globulin Ratio 1.3 (1.0-2.1) Triglycerides 302 H D (0-149) mg/dL Cholesterol 237 H (0-199) mg/dL LDL Cholesterol Direct 122 (0-129) mg/dL HDL Cholesterol 91 H (30-70) mg/dL Urine Color (YELLOW) Urine Clarity (Clear) Urine pH (5.0-8.0) Ur Specific [place] (1.003-1.030) Urine Protein (NEGATIVE) mg/dL Urine Glucose (UA) (Normal) mg/dL Urine Ketones (NEGATIVE) mg/dL Urine Blood (NEGATIVE) Urine Nitrate (NEGATIVE) Urine Bilirubin (NEGATIVE) Urine Urobilinogen (0.2-1.0) mg/dL Ur Leukocyte Esterase (Negative) Josed Aniel/uL Urine WBC (Auto) (0-5) /hpf Urine RBC (Auto) (0-3) /hpf Urine Opiates Screen (NEGATIVE) Urine Methadone Screen (NEGATIVE) Ur Barbiturates Screen (NEGATIVE) Ur Phencyclidine Scrn (NEGATIVE) Ur Amphetamines Screen (NEGATIVE) U Benzodiazepines Scrn (NEGATIVE) U Oth Cocaine Metabols (NEGATIVE) U Cannabinoids Screen (NEGATIVE) Alcohol, Quantitative 237 H (0-10) mg/dl Hepatitis A IgM Ab (NEGATIVE) Hep Bs Antigen (NEGATIVE) Hep B Core IgM Ab (NEGATIVE) Hepatitis C Antibody (NEGATIVE) Blood Type Antibody Screen Laboratory Results - last 24 hr 07/13/18 07/13/18 07/13/18 20:22 20:28 20:34 WBC 7.1 RBC 5.00 Hgb 16.7 Hct 48.6 MCV 97.1 H MCH 33.4 H MCHC 34.4 RDW 13.4 Plt Count 210 MPV 7.6 Neut % (Auto) 58.1 Lymph % (Auto) 33.6 [place] % (Auto) 7.0 Eos % (Auto) 0.8 Baso % (Auto) 0.5 Neut # (Auto) 4.1 Lymph # (Auto) 2.4 [place] # (Auto) 0.5 Eos # (Auto) 0.1 Baso # (Auto) 0.0 PT INR APTT Sodium 144 Potassium 4.7 Chloride 99 Carbon Dioxide 28 Anion Gap 22 H BUN 5 L Creatinine 0.6 L Est GFR ( Amer) > 60 Est GFR (Non-Af Amer) > 60 POC Glucose (mg/dL) 108 Random Glucose 110 Hemoglobin A1c Calcium 9.9 Phosphorus Magnesium Total Bilirubin 1.0 AST 406 H ALT 388 H D Alkaline Phosphatase 129 H Troponin I < 0.0120 Total Protein 9.8 H Albumin 5.6 H Globulin 4.3 H Albumin/Globulin Ratio 1.3 Triglycerides 302 H D Cholesterol 237 H LDL Cholesterol Direct 122 HDL Cholesterol 91 H Urine Color Urine Clarity Urine pH Ur Specific [place] Urine Protein Urine Glucose (UA) Urine Ketones Urine Blood Urine Nitrate Urine Bilirubin Urine Urobilinogen Ur Leukocyte Esterase Urine WBC (Auto) Urine RBC (Auto) Urine Opiates Screen Urine Methadone Screen Ur Barbiturates Screen Ur Phencyclidine Scrn Ur Amphetamines Screen U Benzodiazepines Scrn U Oth Cocaine Metabols U Cannabinoids Screen Alcohol, Quantitative 237 H Hepatitis A IgM Ab Hep Bs Antigen Hep B Core IgM Ab Hepatitis C Antibody Blood Type Antibody Screen 07/13/18 07/13/18 07/13/18 20:34 20:34 20:47 WBC RBC Hgb Hct MCV MCH MCHC RDW Plt Count MPV Neut % (Auto) Lymph % (Auto) [place] % (Auto) Eos % (Auto) Baso % (Auto) Neut # (Auto) Lymph # (Auto) [place] # (Auto) Eos # (Auto) Baso # (Auto) PT 11.6 INR 1.1 APTT 33 Sodium Potassium Chloride Carbon Dioxide Anion Gap BUN Creatinine Est GFR ( Amer) Est GFR (Non-Af Amer) POC Glucose (mg/dL) Random Glucose Hemoglobin A1c 5.4 Calcium Phosphorus Magnesium Total Bilirubin AST ALT Alkaline Phosphatase Troponin I Total Protein Albumin Globulin Albumin/Globulin Ratio Triglycerides Cholesterol LDL Cholesterol Direct HDL Cholesterol Urine Color Urine Clarity Urine pH Ur Specific [place] Urine Protein Urine Glucose (UA) Urine Ketones Urine Blood Urine Nitrate Urine Bilirubin Urine Urobilinogen Ur Leukocyte Esterase Urine WBC (Auto) Urine RBC (Auto) Urine Opiates Screen Urine Methadone Screen Ur Barbiturates Screen Ur Phencyclidine Scrn Ur Amphetamines Screen U Benzodiazepines Scrn U Oth Cocaine Metabols U Cannabinoids Screen Alcohol, Quantitative Hepatitis A IgM Ab Hep Bs Antigen Hep B Core IgM Ab Hepatitis C Antibody Blood Type O POSITIVE Antibody Screen Negative 07/13/18 07/13/18 07/14/18 21:10 21:10 05:56 WBC RBC Hgb Hct MCV MCH MCHC RDW Plt Count MPV Neut % (Auto) Lymph % (Auto) [place] % (Auto) Eos % (Auto) Baso % (Auto) Neut # (Auto) Lymph # (Auto) [place] # (Auto) Eos # (Auto) Baso # (Auto) PT INR APTT Sodium Potassium Chloride Carbon Dioxide Anion Gap BUN Creatinine Est GFR ( Amer) Est GFR (Non-Af Amer) POC Glucose (mg/dL) Random Glucose Hemoglobin A1c Calcium Phosphorus Magnesium Total Bilirubin AST ALT Alkaline Phosphatase Troponin I Total Protein Albumin Globulin Albumin/Globulin Ratio Triglycerides Cholesterol LDL Cholesterol Direct HDL Cholesterol Urine Color Yellow Urine Clarity Clear Urine pH 6.0 Ur Specific [place] 1.005 Urine Protein Negative Urine Glucose (UA) Normal Urine Ketones Negative Urine Blood 1+ H Urine Nitrate Negative Urine Bilirubin Negative Urine Urobilinogen Normal Ur Leukocyte Esterase Neg Urine WBC (Auto) < 1 Urine RBC (Auto) 1 Urine Opiates Screen Negative Urine Methadone Screen Negative Ur Barbiturates Screen Negative Ur Phencyclidine Scrn Positive H Ur Amphetamines Screen Negative U Benzodiazepines Scrn Negative U Oth Cocaine Metabols Negative U Cannabinoids Screen Negative Alcohol, Quantitative < 10 Hepatitis A IgM Ab Hep Bs Antigen Hep B Core IgM Ab Hepatitis C Antibody Blood Type Antibody Screen 07/14/18 07/14/18 07/14/18 05:56 05:56 05:56 WBC 6.7 RBC 4.42 Hgb 14.9 Hct 42.9 MCV 96.9 H MCH 33.8 H MCHC 34.8 RDW 13.6 Plt Count 178 MPV 7.8 Neut % (Auto) 60.5 Lymph % (Auto) 29.4 [place] % (Auto) 9.0 Eos % (Auto) 0.7 Baso % (Auto) 0.4 Neut # (Auto) 4.0 Lymph # (Auto) 2.0 [place] # (Auto) 0.6 Eos # (Auto) 0.0 Baso # (Auto) 0.0 PT INR APTT Sodium 145 Potassium 4.2 Chloride 107 Carbon Dioxide 23 Anion Gap 19 BUN 7 L Creatinine 0.6 L Est GFR ( Amer) > 60 Est GFR (Non-Af Amer) > 60 POC Glucose (mg/dL) Random Glucose 107 Hemoglobin A1c Calcium 9.3 Phosphorus 4.1 Magnesium 1.9 Total Bilirubin 1.1 AST 343 H ALT 348 H Alkaline Phosphatase 94 Troponin I Total Protein 8.4 H Albumin 5.0 Globulin 3.4 Albumin/Globulin Ratio 1.5 Triglycerides Cholesterol LDL Cholesterol Direct HDL Cholesterol Urine Color Urine Clarity Urine pH Ur Specific [place] Urine Protein Urine Glucose (UA) Urine Ketones Urine Blood Urine Nitrate Urine Bilirubin Urine Urobilinogen Ur Leukocyte Esterase Urine WBC (Auto) Urine RBC (Auto) Urine Opiates Screen Urine Methadone Screen Ur Barbiturates Screen Ur Phencyclidine Scrn Ur Amphetamines Screen U Benzodiazepines Scrn U Oth Cocaine Metabols U Cannabinoids Screen Alcohol, Quantitative Hepatitis A IgM Ab Negative Hep Bs Antigen Negative Hep B Core IgM Ab Negative Hepatitis C Antibody Negative Blood Type Antibody Screen EKG/Cardiology Studies: Cardiology / EKG Studies 07/13/18 20:28 ELECTROCARDIOGRAM Stat Comment: Mode Of Transportation: BED Reason For Exam: code stroke 07/13/18 23:04 EKG [ELECTROCARDIOGRAM] Stat Comment: Mode Of Transportation: BED Reason For Exam: cp Review of Systems - Review of Systems All systems: reviewed and no additional remarkable complaints except Critical Care Progress Note - Nutrition Nutrition: Nutrition Category Date Time Status Regular Diet [DIET] Diets 07/14/18 Breakfast Active Assessment/Plan - Assessment and Plan (Free Text) Assessment: The patient requested to sign out AGAINST MEDICAL ADVICE. This action is against my medical advice to the patient and the decision was made with informed refusal. The patient was told that further workup is necessary and a full explanation of the rationale was given. The risks of leaving were explained to the patient and include but are not limited to increased morbidity and mortal ity, , and worsening of known or unknown conditions. Patient was AAOX3 and was able to make this informed decision and understood the clinical situation and my explanation of the risks of leaving. The patient voluntarily accepted these risks and signed an AMA form documenting our conversation. The patient was given the opportunity ask questions and reconsider. The patient was encouraged to return to emergency room at any time for further care. He was advised to follow-up with her primary care doctor as soon as possible. Discussed with Anya Cabrera [email or web address]
== END 2018-07-14 13:13 | disposition left against medical advice (07) | DRG 894 ==
LOC: C.ER 20:14 → C.9E 22:48 → C.9I 23:14
PROVIDERS: ADMIT Family Medicine; ATTEND Family Medicine
PROC: HZ2ZZZZ Detoxification Services for Substance Abuse Treatment (ICD-10-PCS; principal; 2018-07-13)
DX: F10.239 Alcohol dependence with withdrawal, unspecified (principal); G40.509 Epileptic seizures related to external causes, not intractable, without status epilepticus; Y90.7 Blood alcohol level of 200-239 mg/100 ml; R74.0 Nonspecific elevation of levels of transaminase and lactic acid dehydrogenase [LDH]; R45.1 Restlessness and agitation; F16.10 Hallucinogen abuse, uncomplicated; Z78.1 Physical restraint status